=== PATIENT | male | born 1970 | race Hispanic/Latino ===

== ENCOUNTER 2017-09-24 17:12 | Observation (INO) | payer SELFPAY ==
[~2017-09-24] VITALS: Ht 167.6 cm; Wt 77.1 kg
--- NOTE | 2017-09-24 17:58 | ED GENERAL ADULT ---
See Addendum History of Present Illness General Chief Complaint: General Adult Stated Complaint: DEHYDRATION Source: patient Exam Limitations: no limitations Vital Signs & Intake/Output Vital Signs & Intake/Output Vital Signs Date Time Temp Pulse Resp B/P B/P Pulse O2 O2 Flow FiO2 Mean Ox Delivery Rate 09/24 1724 98.0 105 18 125/88 98 Room Air 09/24 1718 97 Room Air Allergies Coded Allergies: No Known Allergies (09/24/17) Triage Note: PT BIBA FROM [facility] C/O DEHYDRATION. 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 PT ARRIVED A&0X3, AMBULATORY WITH A STIFF GAIT D/T MUSCLE CRAMPING. Triage Nurses Notes Reviewed? yes Onset: Abrupt Duration: hour(s): (3), constant, continues in ED, getting worse Timing: single episode today Injury Environment: work Severity: moderate, severe Severity Numbers: 7 No Modifying Factors: none HPI: 47-year-old male with no medical history presents for evaluation of dehydration and muscle cramping. Patient reports he was working outside and we[employer]ther. He reports that he gradually developed diffuse muscle cramping and stiffness worse in the bilateral upper and lower extremities. He denies chest pain or shortness of breath. He also has some abdominal cramping. He states he has been drinking water today but is also been very sweaty. He states he had a similar episode several years ago while working in the heat. He has no chest pain or shortness of breath no fevers no swelling no redness. Does not take any medication. Denies alcohol or drug use. (Shelton Bean) Past History Travel History Traveled to [place] past 21 day No Medical History Any Pertinent Medical History? see below for history Neurological: NONE EENT: NONE Cardiovascular: NONE Respiratory: NONE Gastrointestinal: NONE Hepatic: NONE Renal: NONE Musculoskeletal: NONE Psychiatric: NONE Endocrine: NONE Surgical History Surgical History: non-contributory Psychosocial History What is your primary language Serbian Tobacco Use: Never used Family History Hx Contributory? No (Shelton Bean) Review of Systems Review of Systems Constitutional: Reports: no symptoms. EENTM: Reports: no symptoms. Respiratory: Reports: no symptoms. Cardiovascular: Reports: no symptoms. GI: Reports: no symptoms. Genitourinary: Reports: no symptoms. Musculoskeletal: Reports: see HPI, joint pain, muscle pain, muscle stiffness. Skin: Reports: no symptoms. Neurological/Psychological: Reports: no symptoms. Hematologic/Endocrine: Reports: no symptoms. Immunologic/Allergic: Reports: no symptoms. All Other Systems: Reviewed and Negative (Shelton Baen) Physical Exam Physical Exam General Appearance: well developed/nourished, alert, awake, anxious, moderate distress Head: atraumatic, normal appearance Eyes: Bilateral: normal appearance, PERRL, EOMI. Ears, Nose, Throat: hearing grossly normal, moist mucus membranes Neck: normal inspection, supple, full range of motion Respiratory: normal breath sounds, chest non-tender, no respiratory distress, lungs clear Cardiovascular: regular rate/rhythm, normal peripheral pulses Peripheral Pulses: 2+ radial (R), 2+ radial (L) Gastrointestinal: soft, non-tender Back: normal inspection, normal range of motion, no vertebral tenderness Extremities: normal inspection, limited range of motion, THERE IS STIFFNESS OF THE BILATERAL UPPER AND LOWER EXTREMITIES TENDERNESS TO PALPATION OF THE LARGE MUSCLE GROUPS OF THE ARMS AND LEGS NO SWELLING OR ERYTHEMA NEUROVASCULAR SUPPLY IS INTACT PATIENT IS ABLE TO WALK WITH A STIFF GAIT Neurologic/Psych: no motor/sensory deficits, awake, alert, oriented x 3, normal gait (STIFF), normal mood/affect Reflexes: 1+: knee (R), knee (L). Skin: intact, normal color, warm/dry Lymphatic: no anterior cervical clare Core Measures ACS in differential dx? No CVA/TIA Diagnosis: No Sepsis Present: No Sepsis Focused Exam Completed? No (Shelton Bean) Progress Differential Diagnoses I considered the following diagnoses in my evaluation of the patient: [ Dehydration, electrolyte ABN, rhabdo, muscle spasm, muscle strain] Plan of Care: Orders Procedure Date/time Status EKG 09/24 1721 Active URINALYSIS 09/24 171 Active TROPONIN LEVEL 09/24 1715 Complete MAGNESIUM 09/24 171 Complete COMPREHENSIVE METABOLIC PANEL 09/24 171 Complete CREATINE PHOSPHOKINASE 09/24 171 Complete CBC WITHOUT DIFFERENTIAL 09/24 171 Complete Current Medications Sig/Christine Start time Last Medication Dose Stop Time Status Admin Sodium Chloride 1,000 ML BOLUS ONE 09/24 1800 AC 09/24 (Normal Saline 0.9%) 09/24 1859 1803 Laboratory Tests 09/24/17 1840: Urine Color Pending, Urine Clarity Pending, Urine pH Pending, Ur Specific [place] Pending, Urine Protein Pending, Urine Ketones Pending, Urine Nitrite Pending, Urine Bilirubin Pending, Urine Urobilinogen Pending, Ur Leukocyte Esterase Pending, Ur Microscopic Pending, Urine Hemoglobin Pending, Urine Glucose Pending 09/24/17 1747: Anion Gap 22 H, Estimated GFR 38 L, BUN/Creatinine Ratio 16.8, Glucose 162 H, Calcium 11.7 H, Magnesium 2.4 H, Total Bilirubin 0.6, AST 56, ALT 65, Alkaline Phosphatase 88, Creatine Kinase 893 H, Troponin I < 0.01, Total Protein 10.0 H , Albumin 6.0 H, Globulin 4.0, Albumin/Globulin Ratio 1.5, CBC w Diff NO MAN DIFF REQ, RBC 4.99, MCV 94.0, MCH 32.5 H, MCHC 34.5, RDW 12.9, MPV 9.3, Gran % 85.2 H, Lymphocytes % 8.2 L, Monocytes % 5.4, Eosinophils % 1.1, Basophils % 0.1, Absolute Granulocytes 10.6 H, Absolute Lymphocytes 1.0 L, Absolute Monocytes 0.7 H, Absolute Eosinophils 0.1, Absolute Basophils 0 PT here for evaluation of diffuse muscle pain and stiffness after working outside. On exam he has muscle stiffness the bilateral upper and lower extremities. He is diaphoretic. Labs EKG ordered patient medicated with IV fluids. He'll be monitored. Patient signed out to Dr. Moises Gibbons PENDING LABS AND FLUIDS. Initial ED EKG: none Hand-Off Endorsed To: Moises Gibbons MD Endorsed Time: 1806 Pending: labs (Shelton Bean) Departure Departure Disposition: STILL A PATIENT Condition: Stable Clinical Impression Primary Impression: Dehydration Referrals: Patient Has No Primary Care Dr (PCP/Family) Departure Forms: Customer Survey General Discharge Information (Shelton Bean) PA/VESSEL BUILDER Co-Sign Statement Statement: ED Attending supervision documentation- [] I saw and evaluated the patient. I have also reviewed all the pertinent lab results and diagnostic results. I agree with the findings and the plan of care as documented in the PA's/VESSEL BUILDER's documentation. [X] I have reviewed the ED Record and agree with the PA's/VESSEL BUILDER's documentation. [] Additions or exceptions (if any) to the PAs/VESSEL BUILDER's note and plan are summarized below: [] Resident Co-Sign Statement Statement: ED Attending supervision documentation- [] I saw and evaluated the patient. I have also reviewed all the pertinent lab results and diagnostic results. I agree with the findings and the plan of care as documented in the Resident's documentation. [X] I have reviewed the ED Record and agree with the Resident's documentation. [] Additions or exceptions (if any) to the Resident's note and plan are summarized below: [] (Christopher MOSQUERA,Tarik Gordon) Critical Care Note Critical Care Note Critical Care Time: non-applicable (Jason BALDERAS,Shelton)
[2017-09-24 18:09] LABS: ABSOLUTE BASOPHIL COUNT 0 /CUMM (0.0-0.2); ABSOLUTE EOSINOPHIL COUNT 0.1 /CUMM (0.0-0.7); ABSOLUTE GRANULOCYTE CT 10.6 /CUMM (1.4-6.5); ABSOLUTE MONOCYTE COUNT 0.7 /CUMM (0.10-0.60); BASOPHIL % 0.1 % (0.0-2.0); EOSINOPHIL % 1.1 % (0-5); MEAN CORPUSCULAR HGB 32.5 PG (27.0-31.0); MEAN CORPUSCULAR HGB CONC 34.5 G/DL (33.0-37.0); MEAN PLATELET VOLUME 9.3 FL (7.4-10.4); PLATELET COUNT 231 /CUMM (130-400); RBC DISTRIBUTION WIDTH 12.9 % (11.5-14.5); RED BLOOD CELL CT 4.99 /CUMM (4.70-6.10); WHITE BLOOD CELL COUNT 12.5 /CUMM (4.8-10.8)
[2017-09-24 18:28] LABS: GRANULOCYTE % 85.2 % (42.2-75.2)
[2017-09-24] MEDS ORDERED: MULTIVITAMINS1 EAC9 PO (19:28)
[2017-09-25 06:01] LABS: ABSOLUTE BASOPHIL COUNT 0 /CUMM (0.0-0.2); ABSOLUTE EOSINOPHIL COUNT 0.3 /CUMM (0.0-0.7); ABSOLUTE GRANULOCYTE CT 5.2 /CUMM (1.4-6.5); ABSOLUTE LYMPH COUNT 1.2 /CUMM (1.2-3.4); ABSOLUTE MONOCYTE COUNT 0.6 /CUMM (0.10-0.60); BASOPHIL % 0.4 % (0.0-2.0); EOSINOPHIL % 4.2 % (0-5); GRANULOCYTE % 71.8 % (42.2-75.2); MEAN CORPUSCULAR HGB 32.6 PG (27.0-31.0); MEAN CORPUSCULAR HGB CONC 34.9 G/DL (33.0-37.0); MEAN CORPUSCULAR VOLUME 93.4 FL (80.0-94.0); MEAN PLATELET VOLUME 8.7 FL (7.4-10.4); PLATELET COUNT 192 /CUMM (130-400); RBC DISTRIBUTION WIDTH 13.2 % (11.5-14.5); RED BLOOD CELL CT 4.16 /CUMM (4.70-6.10); WHITE BLOOD CELL COUNT 7.3 /CUMM (4.8-10.8)
[2017-09-25 06:05] LABS: HEMATOCRIT 38.9 % (42-52)
[2017-09-25 08:00] VITALS: BP 102/65
== END 2017-09-25 08:15 ==
LOC: ERH 17:12 → ERHI 19:25 → ERH 19:25 → ERHI 19:25 → ERH 09-25 08:15 → CMPBEDREQ 09-26 12:55
PROVIDERS: Internal Medicine Interventional Cardiology; Physician Assistant Medical
DX: E86.0 Dehydration (principal)
CPT/HCPCS: 6090; 81001; 82436; 93005; 93010; 96360; 96361; 96375; G0378